=== PATIENT | male | born 1940 | race Caucasian/White ===

== ENCOUNTER 2022-06-15 23:02 | Emergency (ER) | payer MEDICARE ==
[~2022-06-15] VITALS: Ht 172.7 cm; Wt 70.5 kg
[2022-06-15 23:26] VITALS: BP 151/79; PULSE 77; TEMP 98.4
[2022-06-16] MEDS ORDERED: VOLTAREN GEL 1%1 TU TP (01:49)
== END 2022-06-16 02:03 | disposition home or self-care (01) ==
LOC: COL.ER 23:02
DX: S83.91XA Sprain of unspecified site of right knee, initial encounter (principal); M25.461 Effusion, right knee; Z87.39 Personal history of other diseases of the musculoskeletal system and connective tissue; X58.XXXA Exposure to other specified factors, initial encounter